=== PATIENT | female | born 1990 | race American Indian/Alaskan Native ===

== ENCOUNTER 2017-02-12 11:28 | Emergency (ER) | payer SELFPAY ==
[2017-02-12 12:12] VITALS: BP 144/90
--- NOTE | 2017-02-12 12:12 | Emergency Department Report ---
HPI - General Chief Complaint: Skin Rash Time Seen by Provider: 02/12/17 11:52 - HPI HPI: 27-year-old female presents today complaining of a skin rash 6 months. Patient states that she feels as if there is about inside her skin crawling and making her skin irritated. Admits to scratching her skin to the point it bleeds. Denies pruritus at this time. Denies fever, chills, nausea, vomiting, chest pain, shortness of breath, abdominal pain. Patient states she did have a blood transfusion 2 years ago and is concerned about transfusion related infections. Patient has been seen at [facility], prescribed steroids and antibiotics and referred to [employer]. Patient hasn't followed up. ED Past Medical Hx - Past Medical History Previous Medical History?: Yes Hx of Cancer: Yes (cervical) - Surgical History Past Surgical History?: No - Social History Smoking Status: Current Every Day Smoker Substance Use Type: Alcohol - Medications Home Medications: Home Medications Medication Instructions Recorded Confirmed Last Taken Type Triamcinolone 0.025% (Nf) [Kenalog 1 applic TP TID #1 tube 02/12/17 Unknown Rx 0.025% OINT] ED Review of Systems ROS: Stated complaint: SKIN RASH Other details as noted in HPI Constitutional: denies: chills, fever, malaise Eyes: denies: eye pain ENT: denies: ear pain, throat pain, congestion Respiratory: denies: cough, shortness of breath, wheezing Cardiovascular: denies: chest pain, palpitations Endocrine: no symptoms reported Gastrointestinal: denies: abdominal pain, nausea, vomiting Skin: lesions Neurological: denies: headache, weakness, numbness, paresthesias Physical Exam - Physical Exam Vital Signs: Vital Signs 02/12/17 11:30 Temperature 98.7 F Pulse Rate 100 H Respiratory 20 Rate Blood Pressure 156/102 O2 Sat by Pulse 100 Oximetry Physical Exam: GENERAL: The patient is well-developed and well-nourished. Patient is in NAD. HEAD: Normocephalic. Atraumatic. EYES: PERRL. NOSE: Normal nasal mucosa with no nasal discharge. THROAT: No erythema, swelling or exudates. NECK: Supple, nontender, without lymphadenopathy. No meningitic signs are noted. CHEST/LUNGS: Clear to auscultation throughout. HEART/CARDIOVASCULAR: Regular rate and rhythm. No murmurs, rubs or gallops. ABDOMEN: Abdomen is soft, nontender. Bowel sounds normoactive. No guarding or rebound tenderness. EXTREMITIES: Full ROM. Peripheral pulses intact. Capillary refill less than 2 seconds. NEURO: Alert and oriented x 3. Normal gait. SKIN: Excoriated lesions noted over the buttocks and upper legs. No signs of infection noted. Nontender to palpation. No bleeding or drainage noted. ED Course Vital Signs 02/12/17 11:30 Temperature 98.7 F Pulse Rate 100 H Respiratory 20 Rate Blood Pressure 156/102 O2 Sat by Pulse 100 Oximetry ED Medical Decision Making - Lab Data Vital Signs 02/12/17 02/12/17 11:30 12:11 Temperature 98.7 F Pulse Rate 100 H 98 H Respiratory 20 18 Rate Blood Pressure 156/102 Blood Pressure 144/90 [Right] O2 Sat by Pulse 100 98 Oximetry - Medical Decision Making 27-year-old female presents today with excoriated lesions of the proximal and upper legs. 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 Patient is in no acute distress at this time. She will be discharged home and is encouraged to follow up with a primary care provider. She will be sent home on triamcinolone and is encouraged to return to the emergency room for any worsening symptoms. Critical care attestation.: If time is entered above; I have spent that time in minutes in the direct care of this critically ill patient, excluding procedure time. ED Disposition Clinical Impression: Rash Disposition: DISCHARGED TO HOME OR SELFCARE Is pt being admited?: No Does the pt Need Aspirin: No Condition: Stable Instructions: Acute Rash (ED), Blood Transfusion Reactions (ED) Additional Instructions: Follow-up with primary care provider and welder machine operator. Return to the emergency department if symptoms worsen. Prescriptions: Triamcinolone 0.025% (Nf) [Kenalog 0.025% OINT] 1 applic TP TID #1 tube Referrals: [facility] [Provider Group] - 3-5 Days Forms: Work/School Release Form(ED), Accompanied Note Time of Disposition: 12:18
== END 2017-02-12 12:32 | disposition home or self-care (01) ==
LOC: ED 11:28
DX: R21 Rash and other nonspecific skin eruption (principal); F17.200 Nicotine dependence, unspecified, uncomplicated
CPT/HCPCS: 99282